=== PATIENT | female | born 1950 | race African-American/Black ===

== ENCOUNTER → 2017-09-15 | Outpatient (CLI) | payer MEDICARE, BC | END | disposition home or self-care (01) | LOC: HKI 10:18 | DX: M25.561 Pain in right knee (principal); I10 Essential (primary) hypertension; K21.9 Gastro-esophageal reflux disease without esophagitis; M17.12 Unilateral primary osteoarthritis, left knee; E11.8 Type 2 diabetes mellitus with unspecified complications; Z88.0 Allergy status to penicillin; Z96.651 Presence of right artificial knee joint | CPT/HCPCS: 73562; 73562-50 ==